=== PATIENT | male | born 1955 | race Caucasian/White ===

== ENCOUNTER → 2018-04-19 12:37 | Outpatient (CLI) | payer OTHER, SELFPAY ==
[2018-04-19 13:14] LABS: Bacteria Urine None Seen; RBC Urine None Seen (0-5/HPF); WBC Urine None Seen (0-5/HPF)
[2018-04-19 13:28] LABS: Appearance Urine UA CLEAR; Bilirubin Urine UA NEGATIVE (NEGATIVE); Color Urine UA YELLOW; Glucose Urine UA NEGATIVE (Normal); Ketones Urine UA NEGATIVE (NEGATIVE); Leukocyte Esterase Urine UA NEGATIVE (NEGATIVE); Nitrite Urine UA Negative (Negative); Occult Blood Urine UA NEGATIVE (Negative); Protein Urine UA NEGATIVE (Negative); Urobilinogen Urine UA 0.2 E.U./dL (0.2)
[2018-04-19 13:35] LABS: Culture Indicated Urine Cult Not Indicated; Urine Comments Microscopic Normal
[2018-04-19 14:12] LABS: Add Manual Diff / Slide Review NO; Basophils Percent Auto 0.9 % (0-2); Eosinophils Percent Auto 5.3 % (2-4); Hemoglobin 13.6 g/dL (13.5-17.5); Lymphocytes Percent Auto 14.8 % (25-40); Mean Corpuscular HGB Conc 33.9 % (30-36); Mean Corpuscular Hemoglobin 27.4 PG (26-34); Mean Corpuscular Volume 80.7 fL (80-100); Monocytes Percent Auto 8.6 % (3-14); Neutrophils Absolute Auto 4600 /uL (3000-5900); Neutrophils Percent Auto 70.4 % (50-75); Platelet Count 213 X10^3/uL (150-400); Red Blood Cell Count 4.96 X10^6/uL (4.5-5.9); Red Cell Distribution Width 14.4 % (11.6-14.8); White Blood Cell Count 6.5 X10^3/uL (4.5-11.0)
[2018-04-19 14:25] LABS: Hemoglobin A1C% w Est Avg Glu 5.9 % (4.0-6.0)
[2018-04-19 14:41] LABS: BUN Creatinine Ratio 21.1 (6-22); Blood Urea Nitrogen 19 mg/dL (9-20); Calcium 9.8 mg/dL (8.4-10.2); Carbon Dioxide 28 mmol/L (22-32); Chloride 104 mmol/L (98-107); Estimated Glomerular Filt Rate > 60.0 mL/min (>60); Glucose 94 mg/dL (80-110); HEMOLYSIS < 15 (0-50); Potassium 4.8 mmol/L (3.4-5.1); Sodium 143 mmol/L (137-145)
== END ==
PROVIDERS: PCP Family Medicine; Visit Provider Orthopaedic Surgery
DX: Z01.818 Encounter for other preprocedural examination (principal); Z01.812 Encounter for preprocedural laboratory examination; N39.9 Disorder of urinary system, unspecified; R73.09 Other abnormal glucose
CPT/HCPCS: 36415; 80048; 81001; 83036; 85025

== ENCOUNTER 2018-05-04 06:36 | Inpatient (IN) | payer OTHER, SELFPAY ==
[2018-04-19 09:51] VITALS: BMI 43.0
[2018-05-04] VITALS (14 sets, daily range): BP systolic 96–162; BP diastolic 48–81; PULSE 70–108; RESP 13–20; TEMP 36–37.2; O2SAT 93–97; BMI 43.0
--- NOTE | 2018-05-04 | DI.RAD.S_ITS ---
PROCEDURE: XR HIP W PEL IF DONE RT 2V INDICATIONS: 62 year-old male with right hip replacement. TECHNIQUE: AP pelvis and lateral view of the right hip acquired. COMPARISON: [facility], MARYBETH, XR PELVIS 1-2V, 05/04/2018, 9:20. [facility], , XR PELVIS WITH LATERAL HIP RIGHT, 03/29/2018, 15:25. [facility], , BILATERAL HIP 2VW, 03/31/2017, 16:38. FINDINGS: Bones: Patient is status post noncemented right hip arthroplasty, with hardware components in expected positions. The hip joint appears congruent. The visualized bony structures appear intact. Remote left hip arthroplasty hardware is again noted. Soft tissues: Overlying postoperative changes are noted, including surgical drain. No suspicious soft tissue densities. Several prostate fiducial markers are again noted. IMPRESSION: Status post right hip arthroplasty, with hardware components in expected positions. Dictated by: Ronaldo Kay M.D. on 05/04/2018 at 11:02 Approved by: Ronaldo Kay M.D. on 05/04/2018 at 11:04
--- NOTE | 2018-05-04 | DI.RAD.S_ITS ---
PROCEDURE: XR PELVIS 1-2V INDICATIONS: right total hip interoperative TECHNIQUE: Intra-operative view of the pelvis and hip acquired. COMPARISON: None. FINDINGS: Bones: Intraoperative devices prior to placement of right-sided arthroplasty prostheses are in expected positions. No fractures or suspicious bony lesions. Soft tissues: Overlying surgical retractors are present, along with other intraoperative changes. IMPRESSION: Expected intraoperative appearance Dictated by: Britton Price M.D. on 05/04/2018 at 10:04 Approved by: Britton Price M.D. on 05/04/2018 at 10:05
[2018-05-04] MEDS: LACTATED RINGERS 1,000 ML 42 ML IV ×2 (07:20→08:57)
[2018-05-04] MEDS: VANCOMYCIN 1,000 MG in SODIUM CHLORIDE 0.9% 500 ML 333.333 ML IV (07:25)
--- NOTE | 2018-05-04 07:42 | PM.PREOP ---
Pre-operative Note Interval Note Pre-op Check: History & Physical Reviewed by Physician
--- NOTE | 2018-05-04 07:44 | P.OP_ITS ---
Operative Date/Time/Diagnoses - Date of procedure: 05/04/18 Time of procedure: 07:57 Procedure & Clinicians Procedure: Right total hip arthroplasty Same procedure as scheduled: Yes Indications: The patient has had progressively worsening right hip pain with radiographic changes consistent with arthritis. Non-operative management has failed and the patient has requested total hip replacement. The risks, benefits and alternatives to surgery were discussed with the patient prior to proceeding. Risks discussed included, but were not limited to, failure to relieve pain, leg length discrepancy, dislocation, stiffness, infection, nerve damage, deep venous thrombosis, pulmonary embolism, stroke, coma, heart attack, permanent paralysis and , as well as the potential need for eventual revision of the prosthetic. Surgeon: Dea Abreu Inspector Floor Sub Assembly: Nils Swenson Anesthesia Type: Spinal Operative Notes Findings: Severe right hip OA, adequate stability, dense femoral bone Closure Type: primary Specimen(s): none sent Implants & Drains: Abreu and Nephew 58 mm R3 cup, anthology high offset size 6, +0 head neutral liner Applied: drain(s) Estimated Blood Loss (mL): 300 Blood products transfused: none Procedure in detail: The patient was seen in the pre-operative area, where the patient identified the right hip as the operative site and this was marked with my initials. The patient received pre-operative antibiotics and was taken to the operating room and placed on the operative table in the left lateral decubitus position after satisfactory anesthesia. A multimedia developer out was performed. The right leg was prepared from the ankle to the iliac crest with ChloroPrep in the usual fashion and draped through sterile drapes. The hip was approached through an approximately 20 cm incision centered over the greater trochanter and curving gently posteriorly as it went proximally. This was carried sharply to the fascia jeff, which was divided and retracted with a self retaining retractor. The trochanteric bursa was excised with care being taken to avoid the sciatic nerve, which was identified and protected throughout the case. The short external rotators were incised and the capsulomuscular flap was raised and tagged for later repair. The hip was dislocated, and a femoral neck osteotomy performed approximately 15 mm above the lesser trochanter. Retractors were placed to expose the acetabulum. The labrum and central soft tissues were removed, as was the anterior capsule. Reaming was performed initially going up in 2 mm increments, then 1 mm increments until good bite was obtained with an odd sized reamer. The cup 1 mm larger than the last reamer was then inserted using the appropriate anteversion guides. A trial neutral liner was placed. We then turned our attention to the femur. The canal was opened with a box cutting osteotome, followed by a T handled reamer and a lateralizing reamer. The chili pepper broach were then used, followed by sequential broaching. A trial head and neck were then placed and the hip relocated and checked for leg length and stability. The patient was stable in the position of sleep, of squatting, and could be put through a range of motion with 45 degrees internal rotation without dislocation. At 90 degrees flexion, internal rotation to [70] was possible before dislocation. This was felt to be satisfactory and the appropriate components were opened, and the trials were removed. The acetabular liner was impacted into position. The final stem was then impacted into the prepared femoral canal. Finally the femoral head was impacted onto the stem. The acetabulum was cleared of all material and the hip relocated one final time. Radiographs were obtained intra-operatively confirming the position of all components and confirming that there were no iatrogenic fractures. The capsulomuscular flap was then repaired to the greater trochanter though an awl hole using the tag sutures. The short external rotators were repaired with black braided nylon. A deep drain was placed and brought out anteriorly. The fascia jeff was closed with interrupted black braided nylon. The subcutaneous layer was closed with interrupted barbed stitches, and the skin with a running 3 -0 V-Lock suture and surgical glue. An Aquacel Ag dressing was applied and the patient was taken to recovery having tolerated the procedure well. Complications: none Condition: stable Disposition: Acute Care Plan for aftercare: The patient will be maintained on a standard total hip replacement protocol with weight bearing as tolerated and posterior hip precautions. The patient will receive aspirin and sequential compression devices for DVT prophylaxis. The patient will be discharged home when safe for the home environment.
[2018-05-04] MEDS: CEFAZOLIN 2 GM/100 ML FROZ.PIGGY IV ×2 (08:05→19:06)
--- NOTE | 2018-05-04 08:29 | SUR.OPER ---
Lateral on padded OR bed. Gel axillary roll. Arms secured on padded armboard with pillow supporting top arm. Padded hip positioner braces x4 - anterior and posterior chest and pelvis. Additional gel pad used anterior pelvis and chest. Gel pad under bottom leg from knee to foot and secured with tape over sheet.
--- NOTE | 2018-05-04 08:35 | SUR.OPER ---
Siva used at 170, generator #1
[2018-05-04] MEDS: BUPIVACAINE 0.25% W/ EPI 50 ML VIAL INJ (08:39)
[2018-05-04] MEDS: SODIUM CHLORIDE IRRIG SOLUTION 250 ML, EPINEPHrine 1 MG IRR (08:42)
[2018-05-04] MEDS: BUPIVACAINE LIPOSOME 266 MG/20 ML VIAL INJ (08:42)
[2018-05-04] MEDS: POVIDONE-IODINE 15 ML, SODIUM CHLORIDE 0.9% 250 ML TOP (08:43)
[2018-05-04] MEDS: fentaNYL 100 MCG/2 ML INJ 25 MCG IV ×3 (10:45→10:55)
[2018-05-04] MEDS: ACETAMINOPHEN 325 MG TABLET 650 MG PO (12:13)
[2018-05-04] MEDS: LACTATED RINGERS 1,000 ML 100 ML IV ×2 (12:13→22:30)
[2018-05-04] MEDS: OXYCODONE IR 10 MG TABLET PO (12:14)
[2018-05-04] MEDS: SUCRALFATE 1 GM TABLET PO ×2 (13:32→21:27)
--- NOTE | 2018-05-04 14:22 | PC.NURSE ---
1115 Pt arrived from PACU via bed. Alert & OX3,. hemovac drng from R hip surg site, tony dressing to hip inc site. SL to R hand. Pt on r/a, sats 95% +. applied SCD ble. at bedside. skin w & D.
[2018-05-04] MEDS: ONDANSETRON 4 MG ODT PO (14:30)
--- NOTE | 2018-05-04 15:21 | PT.IIE ---
Current Diagnoses Unilateral primary osteoarthritis, right hip (05/04/18) Surgery Performed Operation Date: 05/04/18 07:45 Actual Procedures p Total Hip Arthroplasty(Right) - Dea Abreu MD Surgical History (Last Updated 04/19/18 @ 10:37 by Tiffanie Colindres, RN) History of carpal tunnel surgery of left wrist (Acute) History of total left hip arthroplasty (Acute) Hx of abdominal surgery (Acute) Hx of appendectomy (Acute) Hx of arthroscopy of right knee (Acute) Medical History (Last Updated 04/19/18 @ 10:16 by Tiffanie Colindres RN) Bowel obstruction (Acute) DVT (deep venous thrombosis) (Acute) Diaphragmatic hernia congenital (Acute) Duodenal ulcer (Acute) HTN (hypertension) (Acute) Hyperlipidemia (Acute) Prostate cancer (Acute) Sleep apnea with use of continuous positive airway pressure (CPAP) (Acute) Physical Therapy Inpatient Evaluation/Re-Eval M1 PT/OT-IP Prior Functional Status Start: 05/04/18 15:05 Freq: NEEDED Status: Active Protocol: Document 05/04/18 15:05 RS (Rec: 05/04/18 15:20 [id number]) Medical Review Prior Functional Status Medical History Reviewed Yes Diet/Fluid Consistency Regular Communication no known deficits. Mobility and Gait completely independent with mobility Prior Functional Level (Other details) previous L RIVAS Social History Household Members spouse Living Arrangements House Number of Floors (Floors) One Floor Number of Stairs To Enter/Railing? 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 M2 PT-IP Current Condition Start: 05/04/18 15:05 Freq: NEEDED Status: Active Protocol: Document 05/04/18 15:05 RS (Rec: 05/04/18 15:20 RS [id number]) Physical Therapy Current Condition Current Condition Evaluation Date 05/04/18 Treatment Diagnosis R posterior RIVAS Precautions Posterior Hip Precautions No Hip Flexion > 90 degrees No Hip Internal Rotation No Hip Adduction Weight Bearing Status Weight Bearing Status Weight Bear as Tolerated M3 PT-IP Subjective Start: 05/04/18 15:05 Freq: NEEDED Status: Active Protocol: Document 05/04/18 15:05 RS (Rec: 05/04/18 15:20 RS [id number]) Subjective Physical Therapy Visit Type Type Initial Evaluation Visit Start Time 14:10 Visit Stop Time 15:05 Total Visit Minutes 55 Physical Therapy Visit Comments Patient Comments Pt reports much better pain control right now than earlier , is very eager to participate in therapy. Patient/Caregiver Goals go home, return to work right after Labor Day Therapy Pain Assessment Pain When Pain Assessed At Rest Pain Present Pain Present Pain Reported Location Right Hip Intensity 4 Scale Used Numeric (1 - 10) Description Aching Tender Throbbing With Movement Pain Management Techniques Apply Cold Re-positioning Timing of Activity with Medications M4 PT-IP Mobility and Gait Start: 05/04/18 15:05 Freq: NEEDED Status: Active Protocol: Document 05/04/18 15:05 RS (Rec: 05/04/18 15:20 RS [id number]) PT-Bed Mobility Assessment Supine to Sit Supine to Sit Minimal Assistance 1 Person Assistance Head of Bed Elevated Bedrails Scooting Scooting to Edge of Bed Standby Assistance PT-Transfer Assessment Sit to and From Stand Sit to and from Stand Contact Guard Assistance 1 Person Assistance Use of Upper Extremities Equipment Transfer Assistive Device Gait Belt Front Wheeled Walker Transfers Transfer Destination Chair Bedside Commode Transfer Technique Stand Step Pivot Transfer Ability Level of Assist Contact Guard Assistance 1 Person Assistance Use of Upper Extremities Comments Mobility Comments Pt did get a little dizzy/ woozy with initial standing, positive orthostatic drop, improved with sitting rest and able to complete the transfers without issue. Gait Assessment Gait Gait Assistance Required: Contact Guard Assist Distance (Feet) (feet) 5 Able to Maintain Weight Bearing Status Yes During Gait Assistive Devices Assistive Device Gait Belt Front Wheeled Walker Gait Deviations General Gait Pattern Antalgic Decreased Stride Length Decreased Feet Clearance Step-to Gait Factors Limiting Gait Function Factors Limiting Gait Function Decreased Activity Tolerance Decreased Strength Pain Comments Gait Comments Walking distance was limited by orthostatic hypotension with reports of dizziness. Stair Climbing Assessment Comments Stair Climbing Comments not tested PT-Balance Assessment Sitting Balance and Reactions Static Sitting Balance Ability Normal Dynamic Sitting Balance Ability Good Standing Balance and Reactions Static Standing Balance Ability Good Dynamic Standing Balance Ability Fair Device Used FWW M5 PT-IP Objective Assessments Start: 05/04/18 15:05 Freq: NEEDED Status: Active Protocol: Document 05/04/18 15:05 (Rec: 05/04/18 15:20 [id number]) Orientation Orientation/Cognition Level of Alertness Alert Orientation Name Age Birthday Month Date Year Day of Week Place Situation Language Function Ability No Deficits Noted Safety Awareness Understands Safety Issues Memory Description No Deficits Noted Gross Range of Motion Upper Extremity ROM Assessment Within Functional Limits Lower Extremity ROM Assessment Within Functional Limits Strength Upper Extremity Strength Assessment Within Functional Limits Comments Strength Comments LLE grossly 5/5, RLE not tested but at least 2-3/5 as evidenced by performance of post-op exercises Coordination Assessment Gross Coordination Gross Coordination WNL M6 PT-IP Treatment Start: 05/04/18 15:05 Freq: NEEDED Status: Active Protocol: Document 05/04/18 15:05 (Rec: 05/04/18 15:20 [id number]) Physical Therapy Treatment Exercises Exercises Ankle Pumps Gluteal Sets Quad Sets Heel Slides Supine Hip Abduction Education Education Provided Precautions Weight Bearing Status Post-Op Packet Safety M7 PT-IP Assessment and Plan Start: 05/04/18 15:05 Freq: NEEDED Status: Active Protocol: Document 05/04/18 15:05 RS (Rec: 05/04/18 15:20 [id number]) PT Summary Assessment and Plan Potential Rehabilitation Potential Excellent Status of Condition at Evaluation Evolving Summary Impairments Pain Strength Bed Mobility Transfers Gait Activity Tolerance Progress Towards Goals Progressing Toward Goals Slow Progress due to Medical Issues Assessment Summary Pt is POD#0 for R posterior RIVAS. Pt has good return of strength and movement in the RLE. Pt was limited with mobility due to dizziness with corresponding orthostatic hypotension. Pt was able to mobilize up to BSC and chair with only CGA but could not walk further than this due to the aforementioned dizziness. Once this is medically addressed it is anticipated that pt will be SBA for most mobility but may require min A for bed mobility. will serve as pt's 24/ caregiver upon discharge from hospital, and she will participte in family training prior to discharge. With this level of assist available at home, it is anticipated pt will be safe to discharge home tomorrow from a mobility standpoint if medically ready. Goals Bed Mobility Goal Minimal Assistance Transfer Goal Standby Assistance Front Wheeled Walker Gait Goal Standby Assistance Front Wheel Walker Gait Distance 150 Days to Meet Goals 2 Frequency of Treatment Frequency Of Treatment Twice a Day Treatment Plan Physical Therapy Treatment Plan Bed Mobility Training Transfer Training Gait Training Therapeutic Exercise Discharge Planning Other Recommendations and Next Treatment will be present all day Focus tomorrow for training Recommendations To Nursing Amount of Assist Needed 1 Person Assist Discharge Recommendations PT Discharge Recommendations Home with Assistance
[2018-05-04] MEDS: OXYCODONE IR 5 MG TABLET PO (19:06)
[2018-05-04] MEDS: ASPIRIN EC 81 MG TABLET PO (21:26)
[2018-05-04] MEDS: DOCUSATE 100 MG CAPSULE PO (21:26)
[2018-05-04] MEDS: SENNOSIDES 8.6 MG TABLET 17.2 MG PO (21:27)
[2018-05-04] MEDS: PANTOPRAZOLE 40 MG TABLET PO (21:27)
[2018-05-04] MEDS: GABAPENTIN 300 MG CAPSULE PO (23:47)
[2018-05-05] MEDS: OXYCODONE IR 10 MG TABLET PO ×3 (01:36→13:45)
[2018-05-05] MEDS: CEFAZOLIN 2 GM/100 ML FROZ.PIGGY IV (03:03)
[2018-05-05 03:20] VITALS: BP 121/66; PULSE 89; RESP 16; TEMP 37.7; O2SAT 95
[2018-05-05] MEDS: PANTOPRAZOLE 40 MG TABLET PO (06:02)
[2018-05-05 06:06] LABS: Hematocrit 32.2 % (41-53); Hemoglobin 10.9 g/dL (13.5-17.5)
[2018-05-05 07:20] VITALS: BP 145/75; PULSE 80; RESP 18; TEMP 37.3
[2018-05-05] MEDS: SUCRALFATE 1 GM TABLET PO ×2 (07:59→11:45)
[2018-05-05] MEDS: AMLODIPINE 5 MG TABLET PO (07:59)
[2018-05-05] MEDS: TAMSULOSIN 0.4 MG CAPSULE PO (07:59)
[2018-05-05] MEDS: ASPIRIN EC 81 MG TABLET PO (07:59)
[2018-05-05] MEDS: DOCUSATE 100 MG CAPSULE PO (07:59)
--- NOTE | 2018-05-05 10:07 | PT.IPTN ---
Current Diagnoses Unilateral primary osteoarthritis, right hip (05/04/18) Surgery Performed Operation Date: 05/04/18 07:45 Actual Procedures p Total Hip Arthroplasty(Right) - Dea Abreu MD Physical Therapy Treatment Note M2 PT-IP Current Condition Start: 05/04/18 15:05 Freq: NEEDED Status: Active Protocol: Document 05/04/18 15:05 RS (Rec: 05/04/18 15:20 RS [id number]) Physical Therapy Current Condition Current Condition Evaluation Date 05/04/18 Treatment Diagnosis R posterior RIVAS Precautions Posterior Hip Precautions No Hip Flexion > 90 degrees No Hip Internal Rotation No Hip Adduction Weight Bearing Status Weight Bearing Status Weight Bear as Tolerated M3 PT-IP Subjective Start: 05/04/18 15:05 Freq: NEEDED Status: Active Protocol: Document 05/05/18 09:57 GGD (Rec: 05/05/18 10:07 GGD [id number]) Subjective Physical Therapy Visit Type Type Treatment Note Visit Start Time 09:00 Visit Stop Time 09:45 Total Visit Minutes 45 Number of FELT HAT FLANGING OPERATOR Visits 1 Physical Therapy Visit Comments Patient Comments Pt states she feeling better. Therapy Pain Assessment Pain When Pain Assessed At Rest Pain Present Pain Present Pain Reported M4 PT-IP Mobility and Gait Start: 05/04/18 15:05 Freq: NEEDED Status: Active Protocol: Document 05/05/18 09:57 GGD (Rec: 05/05/18 10:07 GGD [id number]) PT-Bed Mobility Assessment Supine to Sit Supine to Sit Minimal Assistance 1 Person Assistance Sit to Supine Sit to Supine Minimal Assistance 1 Person Assistance Scooting Scooting to Edge of Bed Standby Assistance PT-Transfer Assessment Sit to and From Stand Sit to and from Stand Contact Guard Assistance Use of Upper Extremities Equipment Transfer Assistive Device Gait Belt Front Wheeled Walker Transfers Transfer Destination Bed Chair Toilet Transfer Technique gait Transfer Ability Level of Assist Contact Guard Assistance Use of Upper Extremities Comments Mobility Comments care trainer training for bed mobility. Gait Assessment Gait Gait Assistance Required: Contact Guard Assist Distance (Feet) (feet) 60 Assistive Devices Assistive Device Gait Belt Front Wheeled Walker Gait Deviations General Gait Pattern Decreased Stride Length Step-to Gait Factors Limiting Gait Function Factors Limiting Gait Function Decreased Activity Tolerance Decreased Strength Pain M6 PT-IP Treatment Start: 05/04/18 15:05 Freq: NEEDED Status: Active Protocol: Document 05/05/18 09:57 GGD (Rec: 05/05/18 10:07 GGD [id number]) Physical Therapy Treatment Exercises Exercises Ankle Pumps Gluteal Sets Quad Sets Heel Slides Supine Hip Abduction Education Education Provided Precautions M7 PT-IP Assessment and Plan Start: 05/04/18 15:05 Freq: NEEDED Status: Active Protocol: Document 05/05/18 09:57 GGD (Rec: 05/05/18 10:07 GGD [id number]) PT Summary Assessment and Plan Summary Assessment Summary Pt progressing with mobility. His was able to assist with bed mobility. He had no LOB or dizziness with gait and mobility. Frequency of Treatment Frequency Of Treatment Twice a Day Treatment Plan Physical Therapy Treatment Plan Bed Mobility Training Transfer Training Gait Training Therapeutic Exercise Discharge Planning Recommendations To Nursing Amount of Assist Needed 1 Person Assist Discharge Recommendations PT Discharge Recommendations Home with Assistance Outpatient PT
[2018-05-05] MEDS: ATORVASTATIN 20 MG TABLET PO (11:30)
[2018-05-05] MEDS: ACETAMINOPHEN 325 MG TABLET 650 MG PO (11:30)
[2018-05-05] MEDS: LOSARTAN 50 MG TABLET 100 MG PO (11:30)
[2018-05-05] MEDS: hydroCHLOROthiazide 12.5 MG CAPSULE PO (11:31)
[2018-05-05 11:36] VITALS: TEMP 37.3
--- NOTE | 2018-05-05 13:09 | P.DS_ITS ---
History of Present Illness Date Patient Seen: 05/05/18 Time Patient Seen: 13:04 Chief complaint: rt total hip arthroplasty 34040 Narrative: Patient is a 62-year-old male with a history of right hip osteoarthritis. He failed conservative measures and elected to proceed with a right total hip replacement with Dr. Abreu at [facility]. Discharge Providers Date of admission: 05/04/18 06:36 Primary care physician: Norberto Ngo MD Consults: 05/04/18 06:00 Consult to Discharge Planning Routine Comment: post operative joint surgery 05/04/18 07:29 Consult to Respiratory Therapy Evaluate & Treat Comment: Physician Instructions: Evaluate and treat 05/04/18 11:28 Consult to Discharge Planning Routine Comment: Consult to Physical Therapy Evaluate & Treat Comment: Physician Instructions: post op RIVAS protocol Discharge provider: Linda Trinh PA-C Summary Discharge Diagnosis: 1. Right hip osteoarthritis 2. Postoperative anemia Hospital Course: Patient was admitted and taken operating room where he had a right total hip replacement by Dr. Abreu. He recovered well and was transferred to the floor for further care. Postop day 1 patient was ambulating well, pain under control, eating and drinking well and urinating without difficulty. He was ready to be discharged home. Status at Discharge Cognitive/behavioral status at discharge: Alert and orient x3. Functional status at discharge: uses cane/walker Overall status at discharge: patient is progressing back to baseline Time Spent with Patient Less than 30 minutes Exam Vital Signs (past 8 hours): - 05/05/18 07:20 05/05/18 11:36 Temperature 99.2 F 99.2 F Pulse Rate 80 Respiratory Rate 18 Blood Pressure 145/75 H Oxygen Delivery Method Room Air Oxygen Flow Rate 93 Narrative Exam Narrative: Patient in bed. Appears comfortable. Hemovac drain in. Right hip tony dressing clean dry and intact. Moderate swelling right thigh. Bilateral calves soft and nontender. Five hundred five right ankle strength. Neurovascular status intact. Patient alert on x3. Objective Labs Result Diagrams: 05/05/18 05:26 Labs: Laboratory Results - last 24 hr 05/05/18 05:26 Hgb 10.9 L Hct 32.2 L Discharge Plan Discharge Plan Patient Disposition: Home, Self-Care Discharge comment: Start physical therapy next week. Discharge Med Rec/Prescriptions Prescriptions: New aspirin 81 mg Tablet,Delayed Release (Dr/Ec) 81 mg PO BID Qty: 90 RF: 0 acetaminophen 325 mg Tablet 650 mg PO Q6HR MDD 4000mg PRN (Reason: Pain, Mild (1-3)) Qty: 60 RF: 0 oxycodone 5 mg Tablet 5 mg PO Q4H PRN (Reason: Pain, Moderate (4-6)) Qty: 0 RF: 0 Continue atorvastatin 20 mg Tablet 20 mg PO QAM RF: 0 sucralfate 1 gram Tablet 1 g PO QID RF: 0 amlodipine 5 mg Tablet 5 mg PO QAM RF: 0 pantoprazole 40 mg Tablet,Delayed Release (Dr/Ec) 40 mg PO BID RF: 0 gabapentin 300 mg Capsule 300 mg PO 5XD PRN (Reason: pain) RF: 0 hydrochlorothiazide 25 mg Tablet 12.5 mg PO DAILY RF: 0 losartan 100 mg Tablet 100 mg PO QAM RF: 0 tamsulosin [Flomax] 0.4 mg Capsule,Extended Release 24hr 0.4 mg PO BID RF: 0 tamsulosin 0.4 mg Capsule,Extended Release 24hr 0.4 mg PO DAILY RF: 0 Discontinued aspirin 81 mg Tablet,Delayed Release (Dr/Ec) 81 mg PO DAILY RF: 0 Follow up/Referrals: Dea Abreu MD [Physician] - (Follow-up at scheduled appointment. Contact the office with any issues or concerns.) Provider Discharge Instructions Diet: Diet as Tolerated Activity: Activity as tolerated. Posterior hip precautions. Cold/Heat Therapy: Apply ice to right hip area for pain and swelling as needed. Wound Care Report to your healthcare provider any signs of infection, such as:: chills, fever, increased pain and unusual drainage Dressing: Leave dressing in place. May shower. Visit Report/Discharge Packet Instructions: DI for Hip Replacement Discharge Data Primary Care Provider: Norberto Ngo Attending Provider: Dea Abreu Admit Date/Time: 05/04/18 06:36 Quality VTE Deep Vein Thrombosis/Pulmonary Embolism Present on Admission: No
--- NOTE | 2018-05-05 13:55 | CM.IDA ---
Addendum entered by iMs Arshad LPN 05/05/18 15:26: Below note is reviewed and ok'd as per CM/dcplanning orientation process: POC discussed with CM/RN charito Perez. Original Note: DC Assessment: 62 year old male here for right hip replacement surgery, secondary to right hip pain. Patient had surgery yesterday, 05-04. Patient alert and oriented, has been up with physical therapy, and is using walker. is in room, and involved. Primary insurance is [employer]. Thomas Mckeon assessing patient now. Plan: Patient is to be discharged home today. Discussed resources, such as physical therapy. Patient stated that he will be going to outpatient physical therapy in [facility], as he stated that it is close to his home. will be transporting. Patient is comfortable about going home. Cristin Perez R.N,telephonic case manager
--- NOTE | 2018-05-05 14:50 | PC.NURSE ---
1430 Pt dcd to home w/spouse, escorted out via w/c.
== END 2018-05-05 14:30 | disposition home or self-care (01) | DRG 470 ==
PROVIDERS: Admitting Provider Orthopaedic Surgery; PCP Family Medicine; Visit Provider Orthopaedic Surgery
PROC: 0SR90JZ Replacement of Right Hip Joint with Synthetic Substitute, Open Approach (ICD-10-PCS; CPT 27130; principal; 2018-05-04 07:45)
DX: M16.11 Unilateral primary osteoarthritis, right hip (principal); Z68.41 Body mass index [BMI] 40.0-44.9, adult; E66.01 Morbid (severe) obesity due to excess calories; G47.33 Obstructive sleep apnea (adult) (pediatric); I10 Essential (primary) hypertension
CPT/HCPCS: 36415; 36592; 72170; 73502; 85014; 85018; 97110; 97116; 97161; 97530; C1776; C9290; J0171; J0690; J2250; J2704; J3010